=== PATIENT | female | born 1990 | race Caucasian/White ===

== ENCOUNTER 2017-06-22 11:57 | Emergency (ER) | payer SELFPAY ==
[2017-06-22 12:15] VITALS: BP 130/82; PULSE 83; RESP 18; TEMP 98.6
--- NOTE | 2017-06-22 12:38 | ED ---
URI HPI - General Chief Complaint: Upper Respiratory Infection Stated Complaint: sinus infection Time Seen by Provider: 06/22/17 12:21 Source: patient Mode of arrival: ambulatory Limitations: no limitations - History of Present Illness Initial Comments: 26-year-old female patient presents the emergency department today for evaluation of cough, congestion, and nasal drainage. Patient states that she has had these symptoms since Friday. Patient states that her nasal drainage is green/yellow. Patient states that she has a lot of facial pressure with this and does have a mild headache. She denies any fever or chills. Denies any sore throat or ear pain. Patient denies any recent rash, shortness breath, chest pain, abdominal pain, nausea, vomiting, diarrhea, constipation, back pain , numbness, tingling, dizziness, weakness, hematuria, dysuria, urinary urgency, urinary frequency, headache, visual changes, or any other complaints. Patient denies any chance of . - Related Data Previous Rx's Medication Instructions Recorded Sulfamethoxazole/Trimethoprim 1 each PO Q12H 10 Days tab 02/06/15 [Bactrim DS 800-160 mg] Guaifenesin/Pseudoephedrne HCl 1 each PO Q12H #10 tab.er.12h 06/22/17 [Mucinex D ER Tablet] Allergies Allergy/AdvReac Type Severity Reaction Status Date / Time No Known Allergies Allergy Verified 06/22/17 12:15 Review of Systems ROS Statement: Those systems with pertinent positive or pertinent negative responses have been documented in the HPI. ROS Other: All systems not noted in ROS Statement are negative. Past Medical History Past Medical History: No Reported History Additional Past Medical History / Comment(s): Obstetric history: This is her first . She has had care with DR Aly since 18 weeks and before that was seen in [place]. O neg, abs neg, Rub Imm, RPR NR, Hep B neg. Received rhogam on 08-15-14. Normal anatomy US. Abnormal 1hr GTT and normal 3hr. GBS +. History of Any Multi-Drug Resistant Organisms: None Reported Additional Past Surgical History / Comment(s): Pilonidal cyst Past Psychological History: No Psychological Hx Reported Smoking Status: Never smoker Past Alcohol Use History: Rare Past Drug Use History: None Reported General Exam Limitations: no limitations General appearance: alert, in no apparent distress, other (this is a well- developed, well-nourished adult female patient in no acute distress. Vital signs upon presentation were temperature 98.6F, pulse 83, respirations 18, blood pressure 130/82, pulse ox 99% on room air.) Eye exam: Present: normal appearance, PERRL, EOMI. Absent: scleral icterus, conjunctival injection, periorbital swelling ENT exam: Present: normal exam, normal oropharynx, mucous membranes moist, TM's normal bilaterally, other (Mild maxillary sinus tenderness) Neck exam: Present: normal inspection. Absent: tenderness, meningismus, lymphadenopathy Respiratory exam: Present: normal lung sounds bilaterally. Absent: respiratory distress, wheezes, rales, rhonchi, stridor Cardiovascular Exam: Present: regular rate, normal rhythm, normal heart sounds. Absent: systolic murmur, diastolic murmur, rubs, gallop, clicks Neurological exam: Present: alert, oriented X3, CN II-XII intact Psychiatric exam: Present: normal affect, normal mood Skin exam: Present: warm, dry, intact, normal color. Absent: rash Course Vital Signs 06/22/17 12:11 Temperature 98.6 F Pulse Rate 83 Respiratory 18 Rate Blood Pressure 130/82 O2 Sat by Pulse 99 Oximetry Medical Decision Making - Medical Decision Making 26-year-old female patient presented today for evaluation of upper respiratory symptoms and cough. Physical examination is unremarkable. Lungs are clear. Vital signs are stable. She is afebrile. Patient symptoms are consistent with viral upper respiratory infection. She is instructed to increase fluids, take [id number] nasal decongestants, and rest. She was given a prescription for Mucinex D. She is instructed to follow-up with her primary care physician for recheck in 1-2 days. She is instructed to return here immediately for any new, worsening, or concerning symptoms. She verbalizes understanding and agrees with this plan. Disposition Clinical Impression: Upper respiratory infection Disposition: HOME SELF-CARE Condition: Good Instructions: Upper Respiratory Infection (ED) Additional Instructions: Increase fluids. Take [id number] nasal decongestants for symptom relief. Take appropriate and Tylenol for pain relief. Follow-up with your primary care physician for recheck in 1-2 days. Return here immediately for any new, worsening, or concerning symptoms. Prescriptions: Guaifenesin/Pseudoephedrne HCl [Mucinex D ER Tablet] 1 each PO Q12H #10 tab.er.12h Referrals: Todd Patel MD [Primary Care Provider] - 1-2 days Time of Disposition: 12:38
== END 2017-06-22 12:52 | disposition home or self-care (01) ==
LOC: EC 11:57
DX: J06.9 Acute upper respiratory infection, unspecified (principal)
CPT/HCPCS: 99283

== ENCOUNTER 2021-09-14 10:26 | Outpatient (CLI) | payer BC ==
[2021-09-14 12:34] VITALS: BP 122/83; PULSE 102; RESP 16; TEMP 97.4
--- NOTE | 2021-09-26 07:21 | P.MSEPDOC ---
Presenting Problems - Arrival Data Date of Arrival on Unit: 09/14/21 Time of Arrival on Unit: 10:55 Mode of Transport: Ambulatory - Complaint OB-Reason for Admission/Chief Complaint: Observation/Evaluation, Other Comment: fell at 0820 this morning on tail bone Medical History - Information : 2 Para: 1 Term: 1 : 0 Abortions: Spontaneous or Elective: 0 Number of Living Children: 1 - Gestational Age Gestational Age by LUAN (wks/days): 30 Weeks and 4 Days - History Comment: told to come to triage per office Review of Systems - Review of Systems Constitutional: No problems Breast: No problems ENT: No problems Cardiovascular: No problems Respiratory: No problems Gastrointestinal: No problems Genitourinary: No problems Musculoskeletal: No problems Neurological: No problems Skin: No problems Vital Signs - Temperature Temperature: 97.4 F Temperature Source: Temporal Artery Scan - Pulse Apical Pulse Rate: 102 Pulse Assessment Method: Automatic Cuff - Respirations Respiratory Rate: 16 Oxygen Delivery Method: Room Air - Blood Pressure Right Arm Blood Pressure: 122/83 Blood Pressure Mean: 96 Blood Pressure Source: Automatic Cuff Medical Screen Scoring - Uterine Contractions Intensity: Mild Resting: Soft to palpation - Assessment - Baby A Baseline FHR: 140 Heart Rate - NICHD Category: Category I (Normal) NST: Reactive Physician Notification - Physician Notified Physician Notified Date: 09/14/21 Physician Notified Time: 12:15 Physician: Radha Elliott Order Received: Yes - Notification Comment Comment: monitr til 12. may return home with instructions if stable. keep next scheduled appt with dr romeo Maternal Triage Index - Non-Urgent/Priority 4 Non-Urgent Priority 4: Yes Criteria Met for Priority 4: pt fell at 0820 this morning on tail bone. no visable bruising told per office to come to get checked out in triage. feeling baby move. reactive nst. 3 contx seen and felt in 1 1/2 hour period on monitor. mild. no tenderness on abd, soft to palpation. no bleeding or discharge noted vaginally. Disposition - Disposition OB Disposition: Discharge to home, Written follow up instructions reviewed Discharge Date: 09/14/21 Discharge Time: 12:10 I agree with the RN Medical Screening Exam: Yes Case reviewed; plan agreed upon as documented in EMR&OBIX.: Yes Diagnosis: FALL ON SAME LEVEL DUE TO ICE AND SNOW, INITIAL ENCOUNTER
== END 2021-09-14 12:10 | disposition home or self-care (01) ==
LOC: FBPOP 10:26
PROVIDERS: ATTEND Obstetrics & Gynecology
DX: O9A.213 Injury, poisoning and certain other consequences of external causes complicating pregnancy, third trimester (principal); Z3A.30 30 weeks gestation of pregnancy; W00.0XXA Fall on same level due to ice and snow, initial encounter
CPT/HCPCS: 59025; 99213

== ENCOUNTER 2021-11-14 05:48 | Inpatient (IN) | payer BC ==
[2021-11-09 12:17] VITALS: BMI 32.8
--- NOTE | 2021-11-13 18:27 | P.HPOB ---
History of Present Illness H&P Date: 11/13/21 Chief Complaint: Previous traumatic delivery, macrosomia requesting ce sarean section This patient is a pleasant 31-year-old 2 para 1 female estimated date of confinement 11/19/2021 estimated gestational age 39-2/7 weeks gestation who presents to labor and delivery for requested section. Patient's had a previous vaginal delivery was complicated by a long second stage and a fourth degree laceration. This baby is appreciably larger than her first baby and she is requesting primary section for delivery. is otherwise uncomplicated. Review of Systems Genitourinary: Reports Menstruation: Reports amenorrhea Past Medical History Past Medical History: No Reported History, Diabetes Mellitus Additional Past Medical History / Comment(s): Patient's first was a 7 lbs. 10 oz. vaginal delivery complicated by fourth degree laceration. History of positive strep with her first History of Any Multi-Drug Resistant Organisms: None Reported Additional Past Surgical History / Comment(s): Pilonidal cyst removed. Past Anesthesia/Blood Transfusion Reactions: No Reported Reaction, Motion Sickness Past Psychological History: Anxiety Smoking Status: Never smoker Past Alcohol Use History: None Reported Additional Past Alcohol Use History / Comment(s): Ocassional alcohol use prior to , none since. Past Drug Use History: None Reported - Past Family History Brother(s) Family Medical History: Cancer Additional Family Medical History / Comment(s): Testicular cancer. Medications and Allergies Home Medications Medication Instructions Recorded Confirmed Type Pnv,Calcium 72/Iron/Folic Acid 1 each PO DAILY 09/14/21 11/09/21 History [ Plus Tablet] Allergies Allergy/AdvReac Type Severity Reaction Status Date / Time No Known Allergies Allergy Verified 11/09/21 12:08 Exam - OBG Physical Exam Abdomen: bowel sounds normal, no diffuse tenderness, no bruit present, no guarding noted, no hepatomegaly, no splenomegaly, no mass Vulva: both: normal Vagina: normal moisture, no discharge Cervix: no lesion, no discharge Uterus: enlarged (Fundal height is 42 cm) Results blood work shows she is O-, rubella immune, RPR nonreactive, hepatitis B negative, HIV is nonreactive, RhoGAM was given on August 21, Glucola was abnormal with a normal three-hour gtt., group B strep was negative, ultrasound done approximately 1 month ago put the baby at 6 lbs. 4 oz. which is 75th to 90th percentile. Assessment and Plan Assessment: This is a pleasant 31-year-old 2 para 1 female 39-2/7 weeks gestation who presents for primary section due to history of previous obstetrical trauma and large for gestational age infant. The patient, and , and I have discussed this in detail antepartum about her previous obstetrical laceration and the size of her last baby. She understands that the estimated weight of this baby is most likely larger than her last baby and although certainly she could attempt a vaginal delivery. Risk of obstetrical trauma is significant and could result in permanent injury including fecal incontinence. We have therefore decided to proceed with primary section for delivery. Patient understands surgery has risks including risks of infection, bleeding, possible injury bowel, bladder, vessels, and/or other organs. All the patient's questions been answered and a written consent obtained. (1) 39 weeks gestation of Status: Acute Code(s): Z3A.39 - 39 WEEKS GESTATION OF SNOMED Code(s): 34588186 (2) History of previous obstetrical problem Status: Acute Code(s): Z87.59 - PERSONAL HISTORY OF COMP OF PREG, CHLDBRTH AND THE PUERP SNOMED Code(s): 003989397
[2021-11-14] MEDS ORDERED: CITRIC ACID-SODIUM CITRATE 15 ML CUP PO ONE (06:01)
[2021-11-14] MEDS ORDERED: LACTATED RINGERS 1,000 ML IV ONE (06:01)
[2021-11-14 06:28] LABS: Anisocytosis Slight; Basophils % (A) 0 %; Eosinophils # (A) 0.1 k/uL (0-0.7); Eosinophils % (A) 1 %; HCT 31.9 % (34.0-46.0); HGB 9.5 gm/dL (11.4-16.0); Hypochromasia Marked; Lymphocytes # (A) 2.4 k/uL (1.0-4.8); Lymphocytes % (A) 17 %; MCH 20.6 pg (25.0-35.0); MCHC 29.7 g/dL (31.0-37.0); MCV 69.5 fL (80.0-100.0); Mean Platelet Volume 7.6; Microcytosis Marked; Monocytes # (A) 0.7 k/uL (0-1.0); Monocytes % (A) 5 %; Neutrophils # (A) 10.6 k/uL (1.3-7.7); Neutrophils % (A) 75 %; Platelet Count 303 k/uL (150-450); Poikilocytosis Slight; RBC 4.59 m/uL (3.80-5.40); RDW 16.5 % (11.5-15.5); WBC 14.1 k/uL (3.8-10.6)
[2021-11-14] MEDS: LACTATED RINGERS 1,000 ML IV SCH ×3 (07:17→22:02)
[2021-11-14] MEDS ORDERED: MORPHINE SULFATE (PF) 0.3 MG/0.3 ML SYR ONE (07:48)
[2021-11-14] MEDS ORDERED: ONDANSETRON 4 MG/2 ML VIAL ONE (07:48)
[2021-11-14] MEDS ORDERED: OXYTOCIN 30 UNITS/500 ML NS BAG IV ONE (07:48)
[2021-11-14] MEDS ORDERED: KETOROLAC 15 MG/ML 1 ML VIAL ONE (07:48)
[2021-11-14] MEDS ORDERED: NALBUPHINE 10 MG/ML (1 ML AMP) ONE (07:48)
[2021-11-14] MEDS ORDERED: ONDANSETRON 4 MG/2 ML VIAL IVP PRN ×2 (08:20→08:48)
[2021-11-14] MEDS ORDERED: MORPHINE SULFATE 2 MG/ML SYRINGE IVP PRN (08:20)
[2021-11-14] MEDS ORDERED: NALOXONE 0.4 MG/ML 1 ML VIAL IV PRN ×2 (08:20→08:48)
[2021-11-14] MEDS ORDERED: diphenhydrAMINE 50 MG/ML 1 ML VIAL IVP PRN ×2 (08:20→08:48)
--- NOTE | 2021-11-14 08:35 | P.OP ---
Date of Procedure: 11/14/21 Preoperative Diagnosis: #1: 39-2/7 week intrauterine . #2: Previous traumatic delivery with first #3: Large for gestational age. #4: Desires section Postoperative Diagnosis: Same Procedure(s) Performed: Primary low transverse section Anesthesia: spinal Surgeon: True Aly Trimming Machine Operator #1: Radha Elliott Estimated Blood Loss (ml): 600 Pathology: none sent Condition: stable Disposition: floor Indications for Procedure: Please see dictated H&P for intimate details of this patient's admission. Brief summary this pleasant 31-year-old 2 para 1 female 39-2/7 weeks gestation admitted to labor and delivery for primary section due to history of previous traumatic delivery. Patient I discussed the surgery and risks and risks of infection, bleeding, possible injury bowel, bladder, vessels, and other organs. All the patient's questions are answered written consent is obtained. Operative Findings: This is a vigorous viable male infant Apgars 8 and 9 delivery time is 0804 hrs. Infant of a nuchal cord, grossly appears normal, 8 lbs. 10 oz. Description of Procedure: This patient has a Carmona catheter placed to straight drain. She subsequently taken to the operating room where she sat up and spinal anesthetic is administered without incident. With an adequate level of anesthesia she has abdominal prep and drape. Scalpels then taken and a Pfannenstiel skin incision is made. A second scalpel is taken down to the fascia and the fascia scored with a scalpel. Fascial incision extended bilaterally using the Pérez scissors. Fascia is dissected off the rectus muscles. Rectus muscles are the peritoneum was identified and entered sharply. Peritoneal incision extended superior and inferior without difficulty. Bladder blade is then placed. Bladder peritoneum was taken sharply off the lower uterine segment. Scalpels and taken a low transverse uterine incision is made. Using a hemostat I enter the uterine cavity bluntly and there is loss of clear fluid. This incision is extended bluntly. Infant's head is then guided through the incision with fundal pressure. Mouth and nares are bulb suctioned. There is a double nuchal cord which is reduced. With more fundal pressure we then have deliver the rest this infant's body. This is a vigorous viable male Apgars are 8 and 9 delivery time is 0804 hrs. After delivery of the the umbilical cord is doubly clamped and cut appears to be trivascular. The is handed off to the nurses in attendance. Placenta is then manually extracted intact. Uterus is then externalized and uterine incision demarcated with Rodríguez clamps. Uterine incision then closed using 0 Vicryl running locked fashion 2 layers. Excellent hemostasis is noted. This done the bladder peritoneum was then reapproximated using a 3-0 Vicryl. Excess fluid is removed from the abdomen and pelvis. Uterus, tubes, ovaries appear normal for term gestation. Uterus placed back into the abdomen. Parietal peritoneum and closed using 0 Vicryl running fashion. Rectus muscles reapproximated in 0 Vicryl interrupted fashion. Fascial incision is closed using 0 PDS. Fascial incision is intact and hemostatic. Subcutaneous tissues and closed using a 3-0 Vicryl. Skin is and closed using liliana. All counts are correct 3. There are no complications. Infant and mother are taken to her birthing suite in satisfactory condition.
[2021-11-14] MEDS ORDERED: SIMETHICONE 80 MG CHEWABLE PO PRN (08:48)
[2021-11-14] MEDS ORDERED: IBUPROFEN 600 MG TAB PO PRN (08:48)
[2021-11-14] MEDS ORDERED: LANOLIN CREAM 5 GM TUBE TOPICAL PRN (08:48)
[2021-11-14] MEDS ORDERED: Rhogam IMMUNE GLOBULIN 1,500 UNIT/1 ML IM ONE (08:48)
[2021-11-14] MEDS ORDERED: diphenhydrAMINE 25 MG CAP PO PRN (08:48)
[2021-11-14] MEDS ORDERED: METOCLOPRAMIDE 5 MG/ML 2 ML VIAL IVP PRN (08:48)
[2021-11-14] MEDS ORDERED: ZOLPIDEM 5 MG TAB PO PRN (08:48)
[2021-11-14] MEDS ORDERED: ACETAMINOPHEN TAB 500 MG TAB PO PRN (08:48)
[2021-11-14] MEDS ORDERED: OXYTOCIN 30 UNITS/500 ML NS 30 UNIT in SALINE 1 500ML.BAG IV SCH (08:48)
[2021-11-14] MEDS ORDERED: METHYLERGONOVINE 0.2 MG/ML 1 ML AMP IM ONE (11:55)
[2021-11-14] MEDS: SENNOSIDES-DOCUSATE SODIUM 1 EACH TAB PO SCH ×2 (11:58→22:05)
--- NOTE | 2021-11-14 12:09 | P.PN ---
Progress Note - Text Progress Note Date: 11/14/21 I was called see the patient in regards to vaginal bleeding. Proximally hour and a half ago she began having some clots with bleeding and the nurses had a QBL 400 mL. Patient's felt to be firm however she continued to have some bleeding and I was called see the patient. I was able to express 2 large clots uterus is firm there is no active bleeding going on at this time. This appears to be some atony. I did give her a dose of Methergine and continue IV Pitocin. Vital signs are stable she is not symptomatic at this time. Preoperative hemoglobin unfortunately is 9.4 so repeat a CBC in the morning is always her bleeding stays normal.
[2021-11-14] MEDS: KETOROLAC 15 MG/ML 1 ML VIAL IVP SCH ×2 (15:20→22:02)
[2021-11-14] MEDS ORDERED: FERROUS SULFATE 325 MG TAB PO SCH (17:30)
[2021-11-14] MEDS: METHYLERGONOVINE 0.2 MG TAB PO SCH ×2 (17:55→23:37)
[2021-11-15] MEDS: KETOROLAC 15 MG/ML 1 ML VIAL IVP SCH ×3 (04:36→19:39)
[2021-11-15] MEDS: METHYLERGONOVINE 0.2 MG TAB PO SCH (05:18)
--- NOTE | 2021-11-15 06:23 | P.PNOBGPC ---
Subjective - Subjective Patient reports: Reports appetite normal, Reports voiding normally, Reports pain well controlled, Reports ambulating normally : doing well Objective - Vital Signs Latest vital signs: Vital Signs Temp Pulse Resp BP Pulse Ox 11/15/21 06:06 14 11/15/21 05:00 14 97 11/15/21 04:35 98.4 F 84 18 113/56 97 11/15/21 03:00 16 11/15/21 01:00 16 99 11/14/21 23:40 97.5 F L 89 16 114/76 97 11/14/21 23:00 14 11/14/21 21:00 18 97 11/14/21 20:00 97.7 F 92 18 119/70 98 11/14/21 17:00 16 11/14/21 15:27 97.5 F L 83 16 114/73 95 11/14/21 15:00 18 11/14/21 13:20 95 11/14/21 13:00 16 11/14/21 11:50 99 18 116/71 98 11/14/21 11:20 16 11/14/21 10:30 97.3 F L 90 16 106/74 96 11/14/21 10:00 92 16 117/72 97 11/14/21 09:30 96 16 98 11/14/21 09:15 94 16 108/67 97 11/14/21 09:00 98 16 116/71 96 11/14/21 08:45 95 16 116/69 98 11/14/21 08:30 98.0 F 85 16 109/60 100 Intake and Output 11/14/21 11/14/21 11/15/21 14:59 22:59 06:59 Intake Total 300 Output Total 3908 001 5353 Balance -890 -250 -1500 Intake: IV 300 Output: Urine 003 304 5554 Uretheral (Carmona) 100 Output, Quantitative 790 Blood Loss - Exam Lungs: bilateral: normal Chest: Normal S1, Normal S2 Extremities: Present: normal Abdomen: Present: normal appearance, soft. Absent: distention, tenderness Incision: Present: normal, dry, intact Uterus: Present: normal, firm - Labs Labs: Abnormal Lab Results - Last 24 Hours (Table) 11/14/21 Range/Units 06:15 WBC 14.1 H (3.8-10.6) k/uL Hgb 9.5 L (11.4-16.0) gm/dL Hct 31.9 L (34.0-46.0) % MCV 69.5 L (80.0-100.0) fL MCH 20.6 L (25.0-35.0) pg MCHC 29.7 L (31.0-37.0) g/dL RDW 16.5 H (11.5-15.5) % Neutrophils # 10.6 H (1.3-7.7) k/uL Assessment and Plan Assessment: Postoperative day #1. Patient is resting without new complaints. Vital signs are stable she's afebrile. Uterus is firm nontender and she is having normal lochia. CBC is pending at time of this dictation. I suspect she'll will be anemic due to the low preoperative hemoglobin however she is already on iron therapy. Plan today is to check a CBC, encourage ambulation, allow the patient to shower, and continue routine postoperative care (1) 39 weeks gestation of Current Visit: No Status: Acute Code(s): Z3A.39 - 39 WEEKS GESTATION OF SNOMED Code(s): 66443246 (2) History of previous obstetrical problem Current Visit: No Status: Acute Code(s): Z87.59 - PERSONAL HISTORY OF COMP OF PREG, CHLDBRTH AND THE PUERP SNOMED Code(s): 731936289
[2021-11-15 07:10] LABS: Anisocytosis Slight; Basophils % (A) 0 %; Eosinophils # (A) 0.1 k/uL (0-0.7); Eosinophils % (A) 1 %; HCT 25.2 % (34.0-46.0); Hypochromasia Marked; Lymphocytes # (A) 1.7 k/uL (1.0-4.8); Lymphocytes % (A) 13 %; MCH 20.7 pg (25.0-35.0); MCHC 29.2 g/dL (31.0-37.0); MCV 70.8 fL (80.0-100.0); Microcytosis Moderate; Monocytes # (A) 0.6 k/uL (0-1.0); Monocytes % (A) 5 %; Neutrophils # (A) 10.4 k/uL (1.3-7.7); Neutrophils % (A) 80 %; Platelet Count 232 k/uL (150-450); Poikilocytosis Slight; RBC 3.55 m/uL (3.80-5.40); RDW 16.6 % (11.5-15.5); WBC 13.1 k/uL (3.8-10.6)
[2021-11-15 07:23] LABS: HGB 7.3 gm/dL (11.4-16.0)
--- NOTE | 2021-11-15 07:38 | P.PN ---
Progress Note - Text Progress Note Date: 11/15/21 Postoperative day 1 status post section under spinal anesthesia, and i ntrathecal morphine given for postoperative analgesia, patient doing well, there is no anesthesia related complications, Patient had no headache, vital signs stable , Assessment and plan= postop day 1 status post , doing well there is no anesthesia related complication.
[2021-11-15] MEDS: FERROUS SULFATE ORAL ELIXIR 300 MG/5 ML CUP PO SCH ×2 (09:37→19:01)
[2021-11-15] MEDS: SENNOSIDES-DOCUSATE SODIUM 1 EACH TAB PO SCH ×2 (09:41→20:53)
[2021-11-15] MEDS: ACETAMINOPHEN ORAL SUSP (PEDS) 3,840 MG/120 ML BOTTLE PO PRN ×2 (10:43→20:54)
[2021-11-15] MEDS: IBUPROFEN ORAL SUSP 100 MG/5 ML CUP PO PRN (16:36)
[2021-11-15] MEDS: LACTATED RINGERS 1,000 ML IV SCH (19:38)
[2021-11-16] MEDS: IBUPROFEN ORAL SUSP 100 MG/5 ML CUP PO PRN ×3 (00:03→23:23)
[2021-11-16] MEDS: ACETAMINOPHEN ORAL SUSP (PEDS) 3,840 MG/120 ML BOTTLE PO PRN ×3 (03:30→18:25)
[2021-11-16] MEDS: FERROUS SULFATE ORAL ELIXIR 300 MG/5 ML CUP PO SCH ×2 (09:28→18:44)
[2021-11-16] MEDS: SENNOSIDES-DOCUSATE SODIUM 1 EACH TAB PO SCH ×2 (09:29→21:45)
[2021-11-17 00:21] VITALS: TEMP 98.4
[2021-11-17] MEDS: ACETAMINOPHEN ORAL SUSP (PEDS) 3,840 MG/120 ML BOTTLE PO PRN (06:30)
[2021-11-17] MEDS: FERROUS SULFATE ORAL ELIXIR 300 MG/5 ML CUP PO SCH ×2 (06:30→08:31)
--- NOTE | 2021-11-17 07:28 | P.PNOBGPC ---
Subjective - Subjective Patient reports: Reports appetite normal, Reports voiding normally, Reports pain well controlled, Reports ambulating normally : doing well Objective - Vital Signs Latest vital signs: Vital Signs Temp Pulse Resp BP Pulse Ox 11/17/21 00:00 98.4 F 99 19 110/71 96 11/16/21 16:00 98.3 F 102 H 16 125/75 100 11/16/21 08:00 98.2 F 93 16 111/69 100 - Exam Lungs: bilateral: normal Chest: Normal S1, Normal S2 Extremities: Present: normal Abdomen: Present: normal appearance, soft. Absent: distention, tenderness Incision: Present: normal, dry, intact Uterus: Present: normal, firm Assessment and Plan Assessment: Postoperative day #3. Patient is resting without complaints wishes to go home. Vital signs are stable she's afebrile. Uterus is firm nontender and she is having normal lochia. Incision is intact and dry. Impression is a normal post operative course. Plan is to continue routine postoperative care and discharge home later today. (1) 39 weeks gestation of Current Visit: No Status: Acute Code(s): Z3A.39 - 39 WEEKS GESTATION OF SNOMED Code(s): 88940530 (2) History of previous obstetrical problem Current Visit: No Status: Acute Code(s): Z87.59 - PERSONAL HISTORY OF COMP OF PREG, CHLDBRTH AND THE PUERP SNOMED Code(s): 731960099
--- NOTE | 2021-11-17 07:35 | P.DS ---
Providers Date of admission: 11/14/21 05:48 Expected date of discharge: 11/17/21 Attending physician: True Aly Primary care physician: Stated None - Discharge Diagnosis(es) (1) 39 weeks gestation of Current Visit: No Status: Acute (2) History of previous obstetrical problem Current Visit: No Status: Acute Hospital Course: Please see dictated H&P for intimate details of this patient's admission. Brief summary this is a pleasant 31-year-old 2 para 1 female 39-2/7 weeks gestation admitted to labor and delivery for primary section due to history of previous fourth degree laceration and large for gestational age. Patient is admitted she undergoes above-named surgery for viable male . Please see dictated operative note. Postoperative patient is doing well she had an episode of atony right after delivery but this resolved with Methergine and uterine massage. Patient was anemic on admission and her hemoglobin did fall down to 7-1/2 hour she was asymptomatic from this. On postoperative day #3 patient's felt to be stable for discharge home with follow-up me in 1 week. Procedures: Primary low transverse section Patient Condition at Discharge: Good Plan - Discharge Summary Discharge Rx Participant: Yes New Discharge Prescriptions: New Ferrous Sulfate Oral Elixir [Feosol Liquid] 300 mg PO BID-W/MEALS #30 ml Ibuprofen Oral Susp [Motrin Oral Susp] 800 mg PO Q6HR PRN #10 ml PRN Reason: Pain No Action Pnv,Calcium 72/Iron/Folic Acid [ Plus Tablet] 1 each PO DAILY Discharge Medication List Pnv,Calcium 72/Iron/Folic Acid [ Plus Tablet] 1 each PO DAILY 09/14/21 [History] Ferrous Sulfate Oral Elixir [Feosol Liquid] 300 mg PO BID-W/MEALS #30 ml 11/17/21 [Rx] Ibuprofen Oral Susp [Motrin Oral Susp] 800 mg PO Q6HR PRN #10 ml 11/17/21 [Rx] Follow up Appointment(s)/Referral(s): True Aly MD [STAFF PHYSICIAN] - 01/04/22 3:30 pm (Please see me for an incision check on 11-26-2021 @ 08:30) Patient Instructions/Handouts: (DC), Iron Deficiency Anemia (GEN), Iron Rich Diet (DC) Activity/Diet/Wound Care/Special Instructions: No heavy lifting or strenuous activity for 6 weeks. No intercourse or anything per vagina for 6 weeks. Please call if any fever, chills, excessive vaginal bleeding, and/or abdominal pain. Discharge Disposition: HOME SELF-CARE
[2021-11-17] MEDS: SENNOSIDES-DOCUSATE SODIUM 1 EACH TAB PO SCH (08:31)
[2021-11-17] MEDS: IBUPROFEN ORAL SUSP 100 MG/5 ML CUP PO PRN (08:31)
[2021-11-17 09:21] VITALS: BP 124/82; PULSE 108; RESP 16
== END 2021-11-17 10:40 | disposition home or self-care (01) | DRG 786 ==
LOC: 4FBP 05:48
PROVIDERS: ADMIT Obstetrics & Gynecology; ATTEND Obstetrics & Gynecology
PROC: 10D00Z1 Extraction of Products of Conception, Low, Open Approach (ICD-10-PCS; principal; 2021-11-14 08:00)
DX: O36.63X0 Maternal care for excessive fetal growth, third trimester, not applicable or unspecified (principal); O24.12 Pre-existing type 2 diabetes mellitus, in childbirth; O72.2 Delayed and secondary postpartum hemorrhage; D64.9 Anemia, unspecified; O69.81X0 Labor and delivery complicated by cord around neck, without compression, not applicable or unspecified; F41.9 Anxiety disorder, unspecified; O99.02 Anemia complicating childbirth; O99.344 Other mental disorders complicating childbirth; Z37.0 Single live birth; Z3A.39 39 weeks gestation of pregnancy
CPT/HCPCS: 85025; 85461; 86850; 86900; 86901

== ENCOUNTER 2024-11-16 22:42 | Emergency (ER) | payer BC ==
--- NOTE | 2024-11-16 23:18 | ED ---
Chest Pain HPI - General Chief Complaint: Chest Pain Stated Complaint: Chest pain Time Seen by Provider: 11/16/24 22:52 Source: patient, RN notes reviewed Mode of arrival: ambulatory Limitations: no limitations - History of Present Illness Initial Comments: This is a 34-year-old female who presents to the emergency department for right- sided chest pain. States that it started a couple of days ago. Pain seems to go from her right side into her back. Describes it as sharp in nature. Feels like she might have some shortness of breath. Denies any nausea or vomiting. Denies any history of similar pain in the past. MD Complaint: chest pain - Related Data Home Medications Medication Instructions Recorded Confirmed Vit No.180/Iron/Folic 1 each PO DAILY 09/14/21 11/14/21 [ Plus Tablet] Previous Rx's Medication Instructions Recorded Ferrous Sulfate Oral Elixir 300 mg PO BID-W/MEALS #30 ml 11/17/21 [Feosol Liquid] Ibuprofen Oral Susp [Motrin Oral 800 mg PO Q6HR PRN #10 ml 11/17/21 Susp] Allergies Allergy/AdvReac Type Severity Reaction Status Date / Time No Known Allergies Allergy Verified 11/14/21 06:02 Review of Systems ROS Statement: Those systems with pertinent positive or pertinent negative responses have been documented in the HPI. ROS Other: All systems not noted in ROS Statement are negative. Past Medical History Past Medical History: No Reported History, Diabetes Mellitus Additional Past Medical History / Comment(s): Patient's first was a 7 lbs. 10 oz. vaginal delivery complicated by fourth degree laceration. History of positive strep with her first History of Any Multi-Drug Resistant Organisms: None Reported Past Surgical History: Section Additional Past Surgical History / Comment(s): Pilonidal cyst removed. Past Anesthesia/Blood Transfusion Reactions: No Reported Reaction, Motion Sickness Past Psychological History: Anxiety Smoking Status: Never smoker Past Alcohol Use History: Rare Past Drug Use History: None Reported - Past Family History Brother(s) Family Medical History: Cancer Additional Family Medical History / Comment(s): Testicular cancer. General Exam Limitations: no limitations General appearance: alert, in no apparent distress Head exam: Present: atraumatic, normocephalic, normal inspection Respiratory exam: Present: normal lung sounds bilaterally, chest wall tenderness. Absent: respiratory distress, wheezes, rales, rhonchi, stridor Cardiovascular Exam: Present: normal rhythm, tachycardia GI/Abdominal exam: Present: soft, normal bowel sounds. Absent: distended, tenderness, guarding, rebound, rigid Neurological exam: Present: alert, oriented X3, CN II-XII intact Psychiatric exam: Present: normal affect, normal mood Skin exam: Present: warm, dry, intact, normal color. Absent: rash Course Vital Signs 11/16/24 22:46 Temperature 98.4 F Pulse Rate 117 H Respiratory 19 Rate Blood Pressure 159/85 O2 Sat by Pulse 99 Oximetry Chest Pain MDM - MDM This is a 34 year old female who presents to the emergency department for chest pain. Was pt. sent in by a medical professional or institution? @ -No Did you speak to anyone other than the patient for history? @ -No Did you review nursing and triage notes? @ -Yes, and I agree, it is accurate with regards to the patient's symptoms. Were old charts reviewed? @ -No Differential Diagnosis? @ -Differential Chest Pain: Stable Angina, Unstable Angina, STEMI, NSTEMI Aortic Dissection, Pneumothorax, Musculoskeletal, Esophageal Spasm GERD, Cholecystitis, Pancreatitis, Zoster, this is not meant to be an all-inclusive list. EKG interpreted by me (3pts min.)? @ -EKG interpreted by me demonstrating the following: Sinus tachycardia. Ventricular rate 110 bpm, OK interval 140 ms, QRS duration 102 ms, QTc 396 ms. X-rays interpreted by me (1pt min.)? @ -Chest x-ray obtained, my interpretation identifies no localized consolidations or infiltrates. CT interpreted by me (1pt min.)? @ -CTA of the chest obtained. My interpretation identifies no evidence of a pulmonary embolus. U/S interpreted by me (1pt. min.)? @ -Not obtained What testing was considered but not performed? (CT, X-rays, U/S, labs)? Why? @ -None What meds were considered but not given? Why? @ -None Did you discuss the management of the patient with other professionals? @ -No Did you reconcile home meds? @ -No Was smoking cessation discussed for >3mins.? @ -No Was critical care preformed (if so, how long)? @ -No Were there social determinants of health that impacted care today? How? (Homelessness, low income, unemployed, alcoholism, drug addiction, transportation, low edu. Level, literacy, decrease access to med. care, halfway, rehab)? @ -No Was there de-escalation of care discussed even if they declined? (Discuss DNR or withdrawal of care, Hospice)? @ -No What co-morbidities impacted this encounter? (DM, HTN, Smoking, COPD, CAD, Cancer, CVA, Hep., AIDS, mental health diagnosis, sleep apnea, morbid obesity)? @ -None Was patient admitted / discharged? @ -Discharged. Lab work demonstrates leukocytosis with a white blood cell count of 14.68. D-dimer elevated at 0.90. Troponin negative. Chest x-ray reveals no acute process. Given her symptoms with elevated D-dimer, CTA of the of the chest was obtained. No evidence of a pulmonary embolus or other acute process was identified. Patient treated with IV fluids and Toradol with improvement in symptoms. Discussed that symptoms may be musculoskeletal in nature, however she will need to follow-up with her primary care provider for reevaluation. Advised ibuprofen and Tylenol as needed if symptoms return. Patient discharged home in stable condition. Case discussed with ED attending Dr. Sumner. Return precautions reviewed in depth, the patient is instructed to return to the emergency department with any new, worsening, or concerning symptoms. Patient verbalized understanding. Undiagnosed new problem with uncertain prognosis? @ -None Drug Therapy requiring intensive monitoring for toxicity (Heparin, Nitro, Insulin, Cardizem)? @ -None Were any procedures done? @ -None Diagnosis/symptom? @ -Right sided chest pain Acute, or Chronic, or Acute on Chronic? @ -Acute Uncomplicated (without systemic symptoms) or Complicated (systemic symptoms)? @ -Uncomplicated Side effects of treatment? @ -None Exacerbation, Progression, or Severe Exacerbation] @ -Not applicable Poses a threat to life or bodily function? @ -No Disposition Clinical Impression: Right-sided chest pain Disposition: HOME SELF-CARE Instructions (If sedation given, give patient instructions): Chest Pain (ED), Noncardiac Chest Pain (ED), Chest Wall Pain (ED) Additional Instructions: Return to the emergency department with any new, worsening, or concerning symptoms. Alternate with ibuprofen and Tylenol as needed for pain relief. Try to become established with a primary care provider for ongoing medical management and reevaluation of your symptoms. Is patient prescribed a controlled substance at d/c from ED?: No Referrals: None,Stated [Primary Care Provider] - 1-2 days Forms: Area PCPs Time of Disposition: 03:08
[2024-11-16] MEDS: KETOROLAC 15 MG/ML 1 ML VIAL IVP STA (23:28)
[2024-11-16] MEDS: SODIUM CHLORIDE 0.9% 1,000 ML IV ONE (23:29)
[2024-11-16 23:44] LABS: Basophils # (A) 0.12 10*3/uL (0.00-0.10); Basophils % (A) 0.8 %; Eosinophils # (A) 0.31 10*3/uL (0.04-0.35); Eosinophils % (A) 2.1 %; HCT 37.4 % (37.2-46.3); HGB 11.3 g/dL (12.0-15.0); Lymphocytes # (A) 3.58 10*3/uL (0.90-5.00); Lymphocytes % (A) 24.4 %; MCH 20.7 pg (27.0-32.0); MCHC 30.2 g/dL (32.0-37.0); MCV 68.4 fL (80.0-97.0); Mean Platelet Volume 10.3 fL (9.5-12.2); Monocytes % (A) 8.2 %; Neutrophils # (A) 9.44 10*3/uL (1.80-7.70); Neutrophils % (A) 64.3 %; Platelet Count 326 10*3/uL (140-440); RBC 5.47 10*6/uL (4.10-5.20); RDW 18.1 % (11.5-14.5); WBC 14.68 10*3/uL (4.50-10.00)
[2024-11-17 00:02] LABS: HCG,Qualitative Serum Not Detected
[2024-11-17 00:04] LABS: ALT 16 U/L (4-34); AST 17 U/L (14-36); African American GFR (CKD) >90 (>60 ml/min/1.73 sqM); Albumin 4.1 g/dL (3.5-5.0); Alkaline Phosphatase 44 U/L (38-126); Anion Gap 7 mmol/L; Blood Urea Nitrogen 10 mg/dL (7-17); Calcium 9.6 mg/dL (8.4-10.2); Carbon Dioxide 27 mmol/L (22-30); Chloride 104 mmol/L (98-107); Glucose 109 mg/dL (74-99); Lipase 199 U/L (23-300); Non-African American GFR(CKD) >90 (>60 ml/min/1.73 sqM); Potassium 3.6 mmol/L (3.5-5.1); Sodium 138 mmol/L (137-145); Total Bilirubin 0.3 mg/dL (0.2-1.3); Total Protein 7.3 g/dL (6.3-8.2)
[2024-11-17 00:09] LABS: INR 0.8 (<1.2); Partial Thromboplastin Time 21.9 sec (22.0-30.0); Prothrombin Time 9.6 sec (10.0-12.5)
--- NOTE | 2024-11-17 02:04 | XR ---
EXAM: XR Chest, 2 Views CLINICAL HISTORY: ITS.REASON XR Reason: Chest Pain TECHNIQUE: Frontal and lateral views of the chest. COMPARISON: No relevant prior studies available. FINDINGS: Lungs: No consolidation or mass. Pleural space: No effusion. Heart: No cardiomegaly. Bones/joints: No acute findings. IMPRESSION: No acute cardiopulmonary process.
--- NOTE | 2024-11-17 03:00 | CT ---
EXAM: CT Angiography Chest With Intravenous Contrast CLINICAL HISTORY: ITS.REASON CT Reason: right sided chest pain, tachycardia, elevated d- di TECHNIQUE: Axial computed tomographic angiography images of the chest with intravenous contrast. CTDI is 14.3 mGy and DLP is 354.4 mGy-cm. This CT exam was performed using one or more of the following dose reduction techniques: automated exposure control, adjustment of the mA and/or kV according to patient size, and/or use of iterative reconstruction technique. MIP reconstructed images were created and reviewed. COMPARISON: No relevant prior studies available. FINDINGS: Pulmonary arteries: Unremarkable. No pulmonary embolism. Aorta: No acute findings. No thoracic aortic aneurysm. Lungs: Unremarkable. No mass. No consolidation. Pleural space: Unremarkable. No significant effusion. No pneumothorax. Heart: Unremarkable. No cardiomegaly. No significant pericardial effusion. No evidence of RV dysfunction. Bones/joints: No acute fracture. No dislocation. Soft tissues: Unremarkable. Lymph nodes: Unremarkable. No enlarged lymph nodes. IMPRESSION: Normal chest CTA. No pulmonary embolism.
[2024-11-17 03:45] VITALS: BP 125/80; PULSE 68; RESP 16; TEMP 97.9
== END 2024-11-17 03:45 | disposition home or self-care (01) ==
LOC: EC 22:42
DX: R07.9 Chest pain, unspecified (principal)
CPT/HCPCS: 36415; 93005; 85379; 80053; 83690; 83735; 84484; 85025; 85610; 85730; 84703; 71046; 71275; 99285; 96374; 96361; J1885; Q9967